=== PATIENT | male | born 1945 | race Two or more races ===

== ENCOUNTER 2019-11-18 11:18 | Inpatient (IN) | payer MEDICARE ==
[~2019-11-18] VITALS: Ht 165.1 cm; Wt 70.8 kg
[~2019-11-18 11:18] MED LIST: ALLOPURINOL; AMLO10TA8 PO; CALCIUM CARBONATE; CLON0.1T22 PO; FURO40TA6 PO; HYDR-3343 PO; METOPROLOL PO; SODIUM BICARBONATE PO
--- NOTE | 2019-11-18 11:42 | NUR ---
[facility] PATENT #[id number] FOR TRIAGE
[2019-11-18 12:41] LABS: MEAN CORPUSCULAR HEMOGLOBIN 33.2 pg (27.5-34.5); MEAN CORPUSCULAR HGB CONC 32.9 g/dL (33.2-36.2); MEAN CORPUSCULAR VOLUME 100.9 fL (81-97); MEAN PLATELET VOLUME 6.4 fL (7.4-10.4); PLATELET COUNT 203 x10^3/uL (130-400); RED BLOOD COUNT 2.07 x10^6/uL (4.38-5.82); RED CELL DISTRIBUTION WIDTH 17.3 % (9.4-14.8)
[2019-11-18 12:55] LABS: ALANINE AMINOTRANSFERASE 28 U/L (12-78); ALBUMIN 3.7 g/dL (3.4-5.0); ALKALINE PHOSPHATASE 82 U/L (45-117); ANION GAP 11 mmol/L (5-15); BILIRUBIN,TOTAL 0.3 mg/dL (0.2-1.0); CHLORIDE 105 mmol/L (98-107); CREATININE 7.35 mg/dL (0.7-1.3)
[2019-11-18] MEDS ORDERED: SODIUM CHLORIDE FLUSH 10ML SYR IVF ONE (13:00)
[2019-11-18 13:11] LABS: BASOPHILS # (AUTO) 0.03 x10^3/uL (0-0.1); BASOPHILS % (AUTO) 1 % (0-1); EOSINOPHILS # (AUTO) 0.15 x10^3/uL (0-0.4); EOSINOPHILS % (AUTO) 3 % (1-7); LYMPHOCYTES % (AUTO) 14 % (22-44); MD SCAN; MONOCYTES # (AUTO) 0.41 x10^3/uL (0.2-0.8); MONOCYTES % (AUTO) 7 % (2-9); NEUTROPHILS # (AUTO) 4.27 x10^3/uL (1.8-6.8); NEUTROPHILS % (AUTO) 75 % (42-75)
[2019-11-18] MEDS ORDERED: DIPHENHYDRAMINE 25 MG CAPSULE PO PRN (14:00)
[2019-11-18] MEDS ORDERED: ONDANSETRON ODT 4 MG PO PRN (14:00)
[2019-11-18] MEDS ORDERED: ONDANSETRON 2MG/ML, 2ML IVPush PRN (14:00)
[2019-11-18] MEDS ORDERED: ENALAPRILAT 1.25 MG/ML, 2ML IVPush PRN (14:00)
[2019-11-18 14:14] LABS: PROTHROMBIN TIME 10.3 Seconds (9.6-11.5)
[2019-11-18 14:24] VITALS: BP 159/75
--- NOTE | 2019-11-18 14:37 | NUR ---
TRANSFUSION STARTED PER ORDER. VERIFIED W/ HONG MONCADA. PT RESTING ON GURNEY W/ CALL LIGHT IN REACH AND SIDE RAILS UPX2, FAMILY AT BEDSIDE. DENIES FURTHER NEEDS AT THIS TIME. RESP EVEN AND UNLABORED, ANDREW.
[2019-11-18 14:48] VITALS: BP 145/74
[2019-11-18] MEDS ORDERED: MIDAZOLAM 1 MG/ML, 5ML ONE (15:22)
[2019-11-18] MEDS ORDERED: FENTANYL PF 100 MCG/2ML ONE (15:22)
[2019-11-18] MEDS ORDERED: FLUMAZENIL 0.1 MG/1 ML, 5ML ONE (15:23)
[2019-11-18] MEDS ORDERED: NALOXONE 1 MG/ML, 2ML ONE (15:23)
--- NOTE | 2019-11-18 15:29 | NUR ---
PT TAKEN TO IR W/ BLOOD INFUSING. TO BE TRANSFERED TO FLOOR FROM IR.
[2019-11-18] MEDS ORDERED: LIDOCAINE 1%, 20ML ONE (15:39)
[2019-11-18] MEDS ORDERED: CEFAZOLIN PMX 1GM/50ML 50 ML ONE (15:54)
[2019-11-18 17:34] VITALS: BP 171/89
[2019-11-18 18:06] VITALS: BP 172/82
[2019-11-18 20:49] VITALS: BP 161/76
[2019-11-18 23:17] VITALS: BP 162/75
[2019-11-19 03:01] VITALS: BP 152/75
[2019-11-19 06:48] LABS: MEAN CORPUSCULAR HEMOGLOBIN 33.4 pg (27.5-34.5); MEAN CORPUSCULAR HGB CONC 33.9 g/dL (33.2-36.2); MEAN CORPUSCULAR VOLUME 98.4 fL (81-97); MEAN PLATELET VOLUME 6.3 fL (7.4-10.4); PLATELET COUNT 163 x10^3/uL (130-400); RED BLOOD COUNT 2.28 x10^6/uL (4.38-5.82); RED CELL DISTRIBUTION WIDTH 18.4 % (9.4-14.8)
[2019-11-19 06:56] LABS: CHLORIDE 107 mmol/L (98-107)
[2019-11-19 07:06] LABS: % IRON SATURATION 77 % (20-55); ANION GAP 11 mmol/L (5-15); CALCIUM 8.1 mg/dL (8.5-10.1); CREATININE 7.24 mg/dL (0.7-1.3); IRON LEVEL 168 mcg/dL (65-175); TOTAL IRON BINDING CAPACITY 217 mcg/dL (250-450)
[2019-11-19 08:05] LABS: BASOPHILS # (AUTO) 0.04 x10^3/uL (0-0.1); BASOPHILS % (AUTO) 1 % (0-1); EOSINOPHILS # (AUTO) 0.19 x10^3/uL (0-0.4); EOSINOPHILS % (AUTO) 3 % (1-7); LYMPHOCYTES # (AUTO) 0.74 x10^3/uL (1-3.4); LYMPHOCYTES % (AUTO) 11 % (22-44); MD SCAN; MONOCYTES # (AUTO) 0.37 x10^3/uL (0.2-0.8); MONOCYTES % (AUTO) 6 % (2-9); NEUTROPHILS # (AUTO) 5.22 x10^3/uL (1.8-6.8); NEUTROPHILS % (AUTO) 80 % (42-75)
[2019-11-19 09:33] VITALS: BP 160/78
[2019-11-19] MEDS: AMLODIPINE 10 MG TAB PO SCH (09:43)
[2019-11-19 14:28] VITALS: BP 157/85
[2019-11-19 20:15] VITALS: BP 146/77
[2019-11-20 01:34] VITALS: BP 139/72
[2019-11-20 04:35] LABS: MEAN CORPUSCULAR HEMOGLOBIN 32.9 pg (27.5-34.5); MEAN CORPUSCULAR HGB CONC 33.4 g/dL (33.2-36.2); MEAN CORPUSCULAR VOLUME 98.4 fL (81-97); MEAN PLATELET VOLUME 6.7 fL (7.4-10.4); PLATELET COUNT 161 x10^3/uL (130-400); RED BLOOD COUNT 2.27 x10^6/uL (4.38-5.82); RED CELL DISTRIBUTION WIDTH 18.1 % (9.4-14.8)
[2019-11-20 04:40] LABS: ALANINE AMINOTRANSFERASE 16 U/L (12-78); ANION GAP 9 mmol/L (5-15); CALCIUM 8.4 mg/dL (8.5-10.1); CHLORIDE 104 mmol/L (98-107); CREATININE 4.73 mg/dL (0.7-1.3)
[2019-11-20 04:42] LABS: ALKALINE PHOSPHATASE 72 U/L (45-117); BILIRUBIN,TOTAL 0.5 mg/dL (0.2-1.0); TOTAL PROTEIN 6.5 g/dL (6.4-8.2)
[2019-11-20 05:56] LABS: BASOPHILS # (AUTO) 0.03 x10^3/uL (0-0.1); BASOPHILS % (AUTO) 1 % (0-1); EOSINOPHILS # (AUTO) 0.14 x10^3/uL (0-0.4); EOSINOPHILS % (AUTO) 2 % (1-7); LYMPHOCYTES # (AUTO) 0.81 x10^3/uL (1-3.4); LYMPHOCYTES % (AUTO) 14 % (22-44); MD SCAN; MONOCYTES # (AUTO) 0.45 x10^3/uL (0.2-0.8); MONOCYTES % (AUTO) 8 % (2-9); NEUTROPHILS # (AUTO) 4.41 x10^3/uL (1.8-6.8); NEUTROPHILS % (AUTO) 76 % (42-75)
[2019-11-20 06:32] VITALS: BP 155/73
[2019-11-20 12:38] VITALS: BP 154/65
[2019-11-20 18:00] VITALS: BP 144/78
[2019-11-20] MEDS: AMLODIPINE 10 MG TAB PO SCH (18:01)
[2019-11-20] MEDS: ERGOCALCIFEROL 50,000 UNIT CAPSULE PO SCH (18:01)
[2019-11-20 19:34] VITALS: BP 138/72
[2019-11-21 01:08] VITALS: BP 131/69
[2019-11-21 05:49] LABS: BASOPHILS # (AUTO) 0.03 x10^3/uL (0-0.1); BASOPHILS % (AUTO) 1 % (0-1); EOSINOPHILS # (AUTO) 0.14 x10^3/uL (0-0.4); EOSINOPHILS % (AUTO) 3 % (1-7); LYMPHOCYTES # (AUTO) 0.88 x10^3/uL (1-3.4); LYMPHOCYTES % (AUTO) 16 % (22-44); MD NO; MEAN CORPUSCULAR HEMOGLOBIN 33.3 pg (27.5-34.5); MEAN CORPUSCULAR VOLUME 97.8 fL (81-97); MONOCYTES # (AUTO) 0.57 x10^3/uL (0.2-0.8); MONOCYTES % (AUTO) 10 % (2-9); NEUTROPHILS # (AUTO) 4.04 x10^3/uL (1.8-6.8); NEUTROPHILS % (AUTO) 71 % (42-75); PLATELET COUNT 164 x10^3/uL (130-400); RED BLOOD COUNT 2.41 x10^6/uL (4.38-5.82); RED CELL DISTRIBUTION WIDTH 18.1 % (9.4-14.8)
[2019-11-21 05:59] LABS: ALBUMIN 3.2 g/dL (3.4-5.0); ANION GAP 7 mmol/L (5-15); CALCIUM 8.2 mg/dL (8.5-10.1); CHLORIDE 104 mmol/L (98-107)
[2019-11-21 06:02] LABS: ALANINE AMINOTRANSFERASE 19 U/L (12-78); ALKALINE PHOSPHATASE 73 U/L (45-117); BILIRUBIN,TOTAL 0.4 mg/dL (0.2-1.0); CREATININE 3.93 mg/dL (0.7-1.3); TOTAL PROTEIN 6.7 g/dL (6.4-8.2)
[2019-11-21 07:37] VITALS: BP 145/78
[2019-11-21] MEDS: AMLODIPINE 10 MG TAB PO SCH (08:22)
[2019-11-21] MEDS: CIPROFLOXACIN DEXAMETHASONE EAR SUSP 7.5ML RIGHT EAR SCH ×2 (12:21→20:45)
[2019-11-21 14:09] VITALS: BP 136/73
[2019-11-21 19:56] VITALS: BP 134/65
[2019-11-22 02:00] VITALS: BP 128/62
[2019-11-22 07:10] VITALS: BP 166/85
[2019-11-22] MEDS: CIPROFLOXACIN DEXAMETHASONE EAR SUSP 7.5ML RIGHT EAR SCH ×2 (08:47→20:36)
[2019-11-22] MEDS: AMLODIPINE 10 MG TAB PO SCH (08:47)
[2019-11-22 13:39] VITALS: BP 150/67
[2019-11-22 17:05] VITALS: BP 130/79
[2019-11-22 19:26] VITALS: BP 125/62
[2019-11-23 00:40] VITALS: BP 143/67
[2019-11-23 06:17] LABS: BASOPHILS # (AUTO) 0.05 x10^3/uL (0-0.1); BASOPHILS % (AUTO) 1 % (0-1); EOSINOPHILS # (AUTO) 0.21 x10^3/uL (0-0.4); EOSINOPHILS % (AUTO) 4 % (1-7); LYMPHOCYTES # (AUTO) 0.82 x10^3/uL (1-3.4); LYMPHOCYTES % (AUTO) 15 % (22-44); MD NO; MEAN CORPUSCULAR HEMOGLOBIN 33.5 pg (27.5-34.5); MEAN CORPUSCULAR HGB CONC 34.1 g/dL (33.2-36.2); MEAN CORPUSCULAR VOLUME 98.4 fL (81-97); MEAN PLATELET VOLUME 7.2 fL (7.4-10.4); MONOCYTES # (AUTO) 0.41 x10^3/uL (0.2-0.8); MONOCYTES % (AUTO) 8 % (2-9); NEUTROPHILS # (AUTO) 3.89 x10^3/uL (1.8-6.8); NEUTROPHILS % (AUTO) 72 % (42-75); PLATELET COUNT 156 x10^3/uL (130-400); RED BLOOD COUNT 2.35 x10^6/uL (4.38-5.82); RED CELL DISTRIBUTION WIDTH 17.6 % (9.4-14.8)
[2019-11-23 06:27] LABS: CHLORIDE 100 mmol/L (98-107)
[2019-11-23 06:35] LABS: ALANINE AMINOTRANSFERASE 19 U/L (12-78); ALBUMIN 3.2 g/dL (3.4-5.0); ALKALINE PHOSPHATASE 75 U/L (45-117); ANION GAP 12 mmol/L (5-15); BILIRUBIN,TOTAL 0.4 mg/dL (0.2-1.0); CALCIUM 8.4 mg/dL (8.5-10.1); CREATININE 6.81 mg/dL (0.7-1.3); TOTAL PROTEIN 6.5 g/dL (6.4-8.2)
[2019-11-23 06:50] VITALS: BP 149/68
[2019-11-23] MEDS: AMLODIPINE 10 MG TAB PO SCH (09:00)
[2019-11-23] MEDS: CIPROFLOXACIN DEXAMETHASONE EAR SUSP 7.5ML RIGHT EAR SCH ×2 (09:44→21:02)
[2019-11-23 12:59] VITALS: BP 148/68
[2019-11-23 19:56] VITALS: BP 123/65
[2019-11-24 01:09] VITALS: BP 142/71
[2019-11-24 06:05] LABS: ALANINE AMINOTRANSFERASE 19 U/L (12-78); ALBUMIN 3.1 g/dL (3.4-5.0); ANION GAP 9 mmol/L (5-15); CALCIUM 8.3 mg/dL (8.5-10.1); CHLORIDE 103 mmol/L (98-107); CREATININE 4.48 mg/dL (0.7-1.3)
[2019-11-24 06:07] LABS: ALKALINE PHOSPHATASE 75 U/L (45-117); BILIRUBIN,TOTAL 0.4 mg/dL (0.2-1.0); TOTAL PROTEIN 6.5 g/dL (6.4-8.2)
[2019-11-24 06:08] LABS: MEAN CORPUSCULAR HEMOGLOBIN 33.5 pg (27.5-34.5); MEAN CORPUSCULAR HGB CONC 34.1 g/dL (33.2-36.2); MEAN CORPUSCULAR VOLUME 98.2 fL (81-97); MEAN PLATELET VOLUME 6.7 fL (7.4-10.4); PLATELET COUNT 163 x10^3/uL (130-400); RED BLOOD COUNT 2.22 x10^6/uL (4.38-5.82); RED CELL DISTRIBUTION WIDTH 16.9 % (9.4-14.8)
[2019-11-24 06:40] LABS: BASOPHILS # (AUTO) 0.03 x10^3/uL (0-0.1); BASOPHILS % (AUTO) 1 % (0-1); EOSINOPHILS # (AUTO) 0.17 x10^3/uL (0-0.4); EOSINOPHILS % (AUTO) 4 % (1-7); LYMPHOCYTES % (AUTO) 19 % (22-44); MD SCAN; MONOCYTES # (AUTO) 0.48 x10^3/uL (0.2-0.8); MONOCYTES % (AUTO) 10 % (2-9); NEUTROPHILS % (AUTO) 67 % (42-75)
[2019-11-24 08:20] VITALS: BP 146/76
[2019-11-24] MEDS: CIPROFLOXACIN DEXAMETHASONE EAR SUSP 7.5ML RIGHT EAR SCH ×2 (09:19→21:46)
[2019-11-24] MEDS: AMLODIPINE 10 MG TAB PO SCH (09:20)
[2019-11-24] MEDS ORDERED: ARANESP 40 MCG/ML **ESRD SQ SCH (11:30)
[2019-11-24 12:07] VITALS: BP 134/68
[2019-11-24] MEDS: ACETAMINOPHEN 325 MG TABLET PO PRN (18:15)
[2019-11-24 19:35] VITALS: BP 128/69
[2019-11-25 00:29] VITALS: BP 140/68
[2019-11-25 07:21] LABS: CHLORIDE 100 mmol/L (98-107)
[2019-11-25 07:26] LABS: ALBUMIN 3.1 g/dL (3.4-5.0); ANION GAP 9 mmol/L (5-15); CALCIUM 8.6 mg/dL (8.5-10.1); CREATININE 5.69 mg/dL (0.7-1.3)
[2019-11-25] MEDS: CIPROFLOXACIN DEXAMETHASONE EAR SUSP 7.5ML RIGHT EAR SCH ×2 (08:12→22:23)
[2019-11-25] MEDS: AMLODIPINE 10 MG TAB PO SCH (08:15)
[2019-11-25 08:21] VITALS: BP 131/90
[2019-11-25 13:16] VITALS: BP 126/73
[2019-11-25 16:13] VITALS: BP 113/61
[2019-11-25 20:04] VITALS: BP 125/68
[2019-11-26 01:12] VITALS: BP 135/72
[2019-11-26 06:45] LABS: ALBUMIN 3.2 g/dL (3.4-5.0); ANION GAP 10 mmol/L (5-15); CALCIUM 8.2 mg/dL (8.5-10.1); CHLORIDE 101 mmol/L (98-107)
[2019-11-26 06:46] LABS: CREATININE 4.07 mg/dL (0.7-1.3); MEAN CORPUSCULAR HEMOGLOBIN 33.4 pg (27.5-34.5); MEAN CORPUSCULAR VOLUME 98.2 fL (81-97); MEAN PLATELET VOLUME 7.3 fL (7.4-10.4); PLATELET COUNT 162 x10^3/uL (130-400); RED BLOOD COUNT 2.12 x10^6/uL (4.38-5.82); RED CELL DISTRIBUTION WIDTH 17.3 % (9.4-14.8)
[2019-11-26 07:21] LABS: BASOPHILS # (AUTO) 0.04 x10^3/uL (0-0.1); BASOPHILS % (AUTO) 1 % (0-1); EOSINOPHILS # (AUTO) 0.21 x10^3/uL (0-0.4); EOSINOPHILS % (AUTO) 5 % (1-7); LYMPHOCYTES # (AUTO) 0.84 x10^3/uL (1-3.4); LYMPHOCYTES % (AUTO) 20 % (22-44); MD SCAN; MONOCYTES # (AUTO) 0.52 x10^3/uL (0.2-0.8); MONOCYTES % (AUTO) 12 % (2-9); NEUTROPHILS # (AUTO) 2.71 x10^3/uL (1.8-6.8); NEUTROPHILS % (AUTO) 63 % (42-75)
[2019-11-26 07:39] VITALS: BP 138/77
[2019-11-26] MEDS: AMLODIPINE 10 MG TAB PO SCH (07:57)
[2019-11-26] MEDS: CIPROFLOXACIN DEXAMETHASONE EAR SUSP 7.5ML RIGHT EAR SCH ×2 (07:57→20:06)
[2019-11-26 14:40] VITALS: BP 153/82
[2019-11-26 19:31] VITALS: BP 144/67
[2019-11-27 01:14] VITALS: BP 137/63
[2019-11-27 06:19] LABS: ALBUMIN 3.2 g/dL (3.4-5.0); CALCIUM 8.5 mg/dL (8.5-10.1); CHLORIDE 101 mmol/L (98-107)
[2019-11-27 06:21] LABS: MEAN CORPUSCULAR HEMOGLOBIN 33.5 pg (27.5-34.5); MEAN CORPUSCULAR HGB CONC 34.4 g/dL (33.2-36.2); MEAN CORPUSCULAR VOLUME 97.4 fL (81-97); MEAN PLATELET VOLUME 6.8 fL (7.4-10.4); PLATELET COUNT 160 x10^3/uL (130-400); RED BLOOD COUNT 2.17 x10^6/uL (4.38-5.82); RED CELL DISTRIBUTION WIDTH 16.5 % (9.4-14.8)
[2019-11-27 06:25] LABS: ALANINE AMINOTRANSFERASE 18 U/L (12-78); ALKALINE PHOSPHATASE 73 U/L (45-117); ANION GAP 10 mmol/L (5-15); BILIRUBIN,TOTAL 0.4 mg/dL (0.2-1.0); CREATININE 5.58 mg/dL (0.7-1.3); TOTAL PROTEIN 6.5 g/dL (6.4-8.2)
[2019-11-27 06:46] LABS: BASOPHILS # (AUTO) 0.05 x10^3/uL (0-0.1); BASOPHILS % (AUTO) 1 % (0-1); EOSINOPHILS # (AUTO) 0.17 x10^3/uL (0-0.4); EOSINOPHILS % (AUTO) 4 % (1-7); LYMPHOCYTES % (AUTO) 19 % (22-44); MD SCAN; MONOCYTES # (AUTO) 0.49 x10^3/uL (0.2-0.8); MONOCYTES % (AUTO) 12 % (2-9); NEUTROPHILS # (AUTO) 2.62 x10^3/uL (1.8-6.8); NEUTROPHILS % (AUTO) 63 % (42-75)
[2019-11-27 07:03] VITALS: BP 137/75
[2019-11-27] MEDS: AMLODIPINE 10 MG TAB PO SCH (07:35)
[2019-11-27 12:06] VITALS: BP 136/69
[2019-11-27] MEDS: ERGOCALCIFEROL 50,000 UNIT CAPSULE PO SCH (12:18)
[2019-11-27] MEDS ORDERED: PROPOFOL 10 MG/ML, 20ML ONE (15:44)
[2019-11-27] MEDS ORDERED: PAPAVERINE 30 MG/ML, 2ML ONE (15:44)
[2019-11-27] MEDS ORDERED: CEFAZOLIN 1,000 MG ONE (15:44)
[2019-11-27] MEDS ORDERED: GLYCOPYRROLATE 0.2MG/1ML, 5ML ONE (15:44)
[2019-11-27] MEDS ORDERED: ROCURONIUM 10MG/ML,5ML ONE (15:44)
[2019-11-27] MEDS ORDERED: NEOSTIGMINE 1 MG/ML, 10ML ONE (15:44)
[2019-11-27] MEDS ORDERED: THROMBIN 5,000 UNIT VIAL TP ONE (15:45)
[2019-11-27] MEDS ORDERED: PROTAMINE SULFATE 10 MG/ML, 5ML ONE (15:45)
[2019-11-27] MEDS ORDERED: HEPARIN 1,000 UNITS/ML, 10ML ONE (15:45)
[2019-11-27] MEDS ORDERED: LIDOCAINE 1%, 20ML ONE (15:45)
[2019-11-27] MEDS ORDERED: BUPIVACAINE/EPI 0.5% 1:200K ONE (15:45)
[2019-11-27] MEDS ORDERED: BACITRACIN 50,000 UNIT ONE (15:54)
[2019-11-27] MEDS ORDERED: SODIUM CHLORIDE 0.9% 1,000 ML IV SCH (16:27)
[2019-11-27] MEDS ORDERED: CHLORHEXIDINE 15 ML UDC MM ONE (16:30)
[2019-11-27] MEDS ORDERED: FENTANYL PF 100 MCG/2ML ONE ×2 (16:43→16:44)
[2019-11-27] MEDS ORDERED: FENTANYL PF 100 MCG/2ML IV PRN (17:00)
[2019-11-27] MEDS ORDERED: HYDROmorphone 1 MG/ML, 1ML INJ IVPush PRN (17:00)
[2019-11-27] MEDS ORDERED: LABETALOL 5MG/ML, 20ML IV PRN (17:00)
[2019-11-27] MEDS ORDERED: OXYcodone 5 MG/5 ML ORAL.SOL UDC PO PRN (17:00)
[2019-11-27] MEDS ORDERED: hydrALAzine 20 MG/ML, 1ML IV PRN (17:00)
[2019-11-27] MEDS ORDERED: ONDANSETRON 2MG/ML, 2ML IVPush PRN (17:00)
[2019-11-27] MEDS ORDERED: BUPIVACAINE/PF 0.25% ONE (17:16)
[2019-11-27] MEDS ORDERED: BUPIVACAINE 0.25% INJ ONE (17:17)
[2019-11-27] MEDS ORDERED: BACITRACIN 50,000 UNIT IM ONE (17:17)
[2019-11-27 19:40] VITALS: BP 125/61
[2019-11-27] MEDS ORDERED: HYDROcodone/APAP 5/325 TABLET PO PRN (20:00)
[2019-11-27] MEDS ORDERED: ACETAMINOPHEN 500 MG TABLET PO PRN (20:00)
[2019-11-28 00:25] VITALS: BP 122/62
[2019-11-28] MEDS: ACETAMINOPHEN 325 MG TABLET PO PRN (00:28)
[2019-11-28] MEDS: AMLODIPINE 10 MG TAB PO SCH (07:48)
[2019-11-28 09:00] VITALS: BP 134/71
[2019-11-28 12:39] LABS: BASOPHILS # (AUTO) 0.03 x10^3/uL (0-0.1); BASOPHILS % (AUTO) 1 % (0-1); EOSINOPHILS # (AUTO) 0.06 x10^3/uL (0-0.4); EOSINOPHILS % (AUTO) 1 % (1-7); LYMPHOCYTES # (AUTO) 1.03 x10^3/uL (1-3.4); LYMPHOCYTES % (AUTO) 14 % (22-44); MD NO; MEAN CORPUSCULAR HEMOGLOBIN 32.4 pg (27.5-34.5); MEAN CORPUSCULAR HGB CONC 32.6 g/dL (33.2-36.2); MEAN CORPUSCULAR VOLUME 99.4 fL (81-97); MEAN PLATELET VOLUME 7.1 fL (7.4-10.4); MONOCYTES # (AUTO) 0.68 x10^3/uL (0.2-0.8); MONOCYTES % (AUTO) 10 % (2-9); NEUTROPHILS # (AUTO) 5.37 x10^3/uL (1.8-6.8); NEUTROPHILS % (AUTO) 75 % (42-75); PLATELET COUNT 231 x10^3/uL (130-400); RED BLOOD COUNT 2.44 x10^6/uL (4.38-5.82); RED CELL DISTRIBUTION WIDTH 17.1 % (9.4-14.8)
[2019-11-28 13:11] VITALS: BP 139/71
[2019-11-28] MEDS ORDERED: ERGO500017 PO (13:44)
== END 2019-11-28 17:10 | disposition home or self-care (01) | DRG 673 ==
LOC: ED 13:08 → SUATTDRO 13:59 → EDIP 14:30 → 4WST 17:33
PROVIDERS: ADMIT Hospitalist; ATTEND Internal Medicine
PROC: 30233N1 Transfusion of Nonautologous Red Blood Cells into Peripheral Vein, Percutaneous Approach (ICD-10-PCS; principal; 2019-11-18)
PROC: 02H633Z Insertion of Infusion Device into Right Atrium, Percutaneous Approach (ICD-10-PCS; 2019-11-18)
PROC: B548ZZA Ultrasonography of Superior Vena Cava, Guidance (ICD-10-PCS; 2019-11-18)
PROC: 0JHD3XZ Insertion of Tunneled Vascular Access Device into Right Upper Arm Subcutaneous Tissue and Fascia, Percutaneous Approach (ICD-10-PCS; 2019-11-18)
PROC: B5181ZA Fluoroscopy of Superior Vena Cava using Low Osmolar Contrast, Guidance (ICD-10-PCS; 2019-11-18)
PROC: 5A1D70Z Performance of Urinary Filtration, Intermittent, Less than 6 Hours Per Day (ICD-10-PCS; 2019-11-20)
PROC: 03170JD Bypass Right Brachial Artery to Upper Arm Vein with Synthetic Substitute, Open Approach (ICD-10-PCS; 2019-11-27)
DX: I12.0 Hypertensive chronic kidney disease with stage 5 chronic kidney disease or end stage renal disease (principal); N18.6 End stage renal disease; E87.1 Hypo-osmolality and hyponatremia; R53.1 Weakness; D63.1 Anemia in chronic kidney disease; M10.9 Gout, unspecified; R00.0 Tachycardia, unspecified; I95.9 Hypotension, unspecified; N25.0 Renal osteodystrophy; E87.6 Hypokalemia; E83.41 Hypermagnesemia; E83.51 Hypocalcemia; Z99.2 Dependence on renal dialysis; Z83.3 Family history of diabetes mellitus; Z20.828 Contact with and (suspected) exposure to other viral communicable diseases; Z87.01 Personal history of pneumonia (recurrent); E83.42 Hypomagnesemia; Z79.899 Other long term (current) drug therapy; Z82.61 Family history of arthritis; Z84.89 Family history of other specified conditions
CPT/HCPCS: 36415; 36558; 80048; 80053; 80069; 80074; 82306; 82728; 83540; 83550; 83735; 83970; 84100; 85025; 85610; 86480; 86850; 86900; 86923; 87635; 90935; 93005; 99156; 99157; 99285; C1894; G0378; J0690; J0882; J1644; J2250; J2704; J2710; J2720; J3010; J3490; C1750; C1768; G0365; J1642; J2310; J2440; P9016; Q0163